=== PATIENT | male | born 1990 | race Caucasian/White ===

== ENCOUNTER 2017-07-17 08:53 | Emergency (ER) | payer BC, OTHER ==
[2017-07-17] MEDS ORDERED: ceFAZolin 1,000 MG VIAL IM STA (09:03)
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
[2017-07-17 10:19] VITALS: PULSE 71; RESP 20; TEMP 98.1
[2017-07-17 10:51] VITALS: BP 159/86
--- NOTE | 2017-07-17 11:08 | XR ---
EXAMINATION TYPE: XR finger LT , 3 VIEWS DATE OF EXAM ORDERED: 07/17/2017 HISTORY: Pain. COMPARISON: None. FINDINGS: There is a minimally displaced, comminuted tuft fracture of the distal phalanx of the left index finger. There is associated soft tissue trauma. IMPRESSION: Compound, comminuted but minimally displaced tuft fracture of the distal phalanx of the left index fi nger. Code B: Initial encounter for open fracture type I or II
== END 2017-07-17 11:08 | disposition home or self-care (01) ==
LOC: EC 08:53
DX: S62.631B Displaced fracture of distal phalanx of left index finger, initial encounter for open fracture (principal); S61.311A Laceration without foreign body of left index finger with damage to nail, initial encounter; F17.200 Nicotine dependence, unspecified, uncomplicated; W23.0XXA Caught, crushed, jammed, or pinched between moving objects, initial encounter; Y93.89 Activity, other specified
CPT/HCPCS: 99283; 11760; 12002; 96372; 73140; J0690